=== PATIENT | female | born 1990 | race African-American/Black ===

== ENCOUNTER 2020-08-26 14:17 | Emergency (ER) | payer OTHER ==
[~2020-08-26] VITALS: Ht 160 cm; Wt 84.8 kg
[2020-08-26 16:15] LABS: ABSOLUTE NEUTROPHILS 2.6 thou/uL (1.4-8.2); BASOPHILS 1.2 % (0.0-2.0); EOSINOPHILS 2.1 % (0.0-3.0); HEMATOCRIT 43.6 % (37.0-47.0); HEMOGLOBIN 14.7 gm/dL (12.0-15.0); LYMPHOCYTES 41.5 % (24.0-44.0); MCH 29.8 pg (26.0-34.0); MCHC 33.7 g/dL (28.0-37.0); MCV 88.4 fL (80.0-100.0); MONOCYTES 10.2 % (1.0-8.0); PLATELET COUNT 233 thou/uL (150-400); RBC 4.93 mil/uL (4.20-5.00); RDW 12.9 % (10.5-14.5); WBC 5.8 thou/uL (4.0-11.0)
[2020-08-26 16:24] LABS: ANION GAP 8 mmol/L (7-16); BUN 14 mg/dL (7-18); CALCIUM 9.2 mg/dL (8.5-10.1); CHLORIDE 103 mmol/L (98-107); CO2 26 mmol/L (21-32); GLUCOSE 89 mg/dL (74-106); POTASSIUM 3.8 mmol/L (3.5-5.1); SODIUM 137 mmol/L (136-145)
[2020-08-26 16:34] LABS: ALBUMIN 4.3 g/dL (3.4-5.0); SGOT 22 U/L (15-37); SGPT 41 U/L (14-59); TOTAL BILIRUBIN 0.8 mg/dL (0.2-1.0); TOTAL PROTEIN 8.4 g/dL (6.4-8.2); TROPONIN-I <0.06 ng/mL (<0.06)
[2020-08-26 17:16] VITALS: BP 122/76
--- NOTE | 2020-08-27 07:21 | EKG ---
[address] [employer] [place] [address] ELECTROCARDIOGRAM REPORT Name: ONEYDA PRIETO Room #: DEP TED Bolden#: [id number] Admission: 08/26/20 Attend Phys: Discharge: 08/26/20 Date of : 89 Report #: [id number] [facility] ED Test Date: 2020-08-26 Test Time: 14:24:12 Pat Name: ONEYDA PRIETO Department: Room: Gender: F Expert Witness: kf : 1990 Requested By: Ventura Razo Order Number: [id number] MD: Misael Vallejo Measurements Intervals [place] Rate: 61 P: 34 IN: 149 QRS: 30 QRSD: 92 T: 55 QT: 415 QTc: 418 Interpretive Statements Sinus rhythm Baseline wander in lead(s) V1,V2 No previous ECG available for comparison Electronically Signed On 08-27-2020 7:21:05 [employer] by Misael Vallejo [email or web address] <ELECTRONICALLY SIGNED> By: Misael Vallejo MD, [facility] 08/27/20 0721 1424 1424 Misael Vallejo MD, FACC /EPI
== END 2020-08-26 17:16 | disposition home or self-care (01) ==
LOC: ER 14:17
PROVIDERS: Physician Assistant
DX: R07.89 Other chest pain (principal)

== ENCOUNTER → 2021-03-23 | Emergency (ER) | payer OTHER | LOC: ER 22:36 | DX: Z01.84 Encounter for antibody response examination (principal); Z53.21 Procedure and treatment not carried out due to patient leaving prior to being seen by health care provider ==